=== PATIENT | male | born 1980 | race Caucasian/White ===

== ENCOUNTER 2020-06-19 15:45 | Emergency (ER) | payer MEDICAID, SELFPAY ==
[2020-06-19 15:47] VITALS: BP 113/71; PULSE 66; RESP 14; TEMP 36.6; O2SAT 98; BMI 21.6
--- NOTE | 2020-06-19 16:12 | EKG12_ITS ---
Test Reason : COUGH Blood Pressure : / mmHG Vent. Rate : 057 BPM Atrial Rate : 057 BPM P-R Int : 190 ms QRS Dur : 118 ms QT Int : 426 ms P-R-T Axes : 060 070 076 degrees QTc Int : 414 ms Sinus bradycardia Incomplete right bundle branch block Borderline ECG Confirmed by CHRIS CRAFT, MOHIT ([id number]), editor at large ABHI LACEY ([id number]) on 06/25/2020 1:06:54 PM Referred By: Confirmed By:MOHIT PEREZ MD
--- NOTE | 2020-06-19 16:13 | VDLE_ITS ---
Reason For Study: edema, cough RIGHT LEFT GSV is normal. GSV is normal. CFV is compressible. CFV is compressible. FV is compressible. FV is compressible. POP V is compressible. POP V is compressible. T/P Trunk is compressible. T/P Trunk is compressible. PTV is compressible. PTV is compressible. RT PerV is compressible. LT PerV is compressible. Procedure This is a venous duplex using B-mode, color flow and spectral Doppler. Exam performed portable in ED. The exam was abbreviated due to the COVID 19 protocol. The exam was diagnostic. A preliminary report was called and/or faxed to Dr. Hong. Interpretation Summary Deep veins of the lower extremities are bilaterally patent and compressible segmentally. There is no evidence of deep vein thrombosis on either side. The great saphenous veins appear bilaterally patent and compressible segmentally. Ordering Physician: Becky Hong Performed By: Amado Moreno RVT
--- NOTE | 2020-06-19 16:28 | ED.DCSUM_ITS ---
- ER Visit Summary Date of Service: 06/19/20 Chief Complaint: Cough, fatigue History of Present Illness: The patient is a 40 M presenting with cough, fatigue. He states his symptoms started on Wednesday. He has had subjective fever and chills. He has had rhinorrhea and sore throat. He has had shortness of breath and nonproductive cough. He denies chest pain. He has had diarrhea. Denies blood in his stool. Denies abdominal pain, nausea, vomiting. He complains of myalgias. He has a mild headache. He is concerned about possibility of COVID. He has not lost his sense of taste or smell. No known COVID exposure. His daughter has a fever as well. Complains of bilateral lower extremity cramping. Denies PE/DVT risk factors. Physical Examination: Vitals are stable. Patient is afebrile. Alert no acute distress. Pulse ox 98% on room air. HEENT exam is unremarkable. Pharynx is normal Neck is supple. No meningismus Lungs are clear and equal bilaterally. Heart is regular rate and rhythm. Abdomen is soft nontender nondistended. Extremities are unremarkable. Skin is warm and dry. No rash No focal neurologic deficit. Remainder of exam is unremarkable. Emergency Department Course and Treatment: EKG is sinus rhythm rate of 57 with no acute ischemic changes. Chest x-ray shows Normal x-ray examination of the chest. CBC, chemistries unremarkable. D-dimer negative. Troponin is negative. His daughter had a positive rapid strep test. Rapid strep was obtained and is negative. COVID test was ordered and is pending. Ambulatory pulse ox is 99% on room air. Patient is advised to social distance and quarantine until his results come back. Advised to return to the ED for worsening complaints. Disposition: Discharge home Impression: Viral illness, suspect COVID This note was generated with [employer] dictation software. It may contain incorrect words, spelling, and punctuation that were not noted in review of the chart prior to signing ED Disposition - Plan for ED Patient: Referrals: Estevan Grimes [Primary Care Provider] -
--- NOTE | 2020-06-19 17:00 | RAD_ITS ---
STUDY: X-RAY CHEST REASON FOR EXAM: Male, 40 years old. cough, shortness of breath TECHNIQUE: AP portable view of the chest. COMPARISON: None. FINDINGS: The lungs are clear and expanded. There is no demonstrated pleural abnormality. Normal size heart. Normal mediastinum and anil. Normal visualized pulmonary arteries. Normal visualized aortic arch and descending thoracic aorta. Normal visualized thoracic spine. Normal visualized ribs, clavicles, and shoulders. There is no demonstrated abnormality of the visualized soft tissue structures of the upper abdomen. RAD/Chest 1 View (Portable) IMPRESSION: Normal x-ray examination of the chest. Electronically Signed: Jason García MD at 17:16 EDT , Service support ,
[2020-06-19 17:07] LABS: Absolute Lymphocyte Count 2.92 X10^3/uL (0.83-4.51); Absolute Neutrophil Count 3.1 X10^3/uL (2.0-7.7); Basophil# 0.05 X10^3/uL; Basophil% 0.7 % (0-1); Eosinophil# 0.08 X10^3/uL; Eosinophils% 1.2 % (0-5); Hematocrit 40.9 % (40-54); Hemoglobin 13.6 g/dL (13.0-16.5); Lymphocyte # 2.92 X10^3/ul (4.0); Lymphocyte % 42.9 % (19-41); Mean Corp Hgb Conc 33.3 g/dL (32-36); Mean Corpuscular Hgb 30.8 pg (27.0-32.0); Mean Corpuscular Volume 92.5 fL (80-94); Mean Platelet Vol. 10.9 fl (6.2-12.0); Monocyte# 0.61 X10^3/uL; NRBC Flagged by Analyzer 0 % (0-5); Neutrophil # 3.14 X10^3/uL (2.7-7.7); Neutrophil % 46.1 % (47-70); Platelet Count 254 K/mm3 (150-450); RBC Distribution Width CV 12.1 % (11.6-14.6); RBC Distribution Width SD 41.1 fl (35.1-43.9); Red Blood Count 4.42 M/mm3 (4.6-6.2); White Blood Count 6.8 K/mm3 (4.4-11.0)
[2020-06-19 17:10] VITALS: O2SAT 98
[2020-06-19 17:11] VITALS: BP 118/78; PULSE 60; RESP 17; TEMP 36.6; O2SAT 98
[2020-06-19 17:21] LABS: D-Dimer Quantitative (DVT/PE) < 0.27 FEU/ug/m (0.27-0.49)
[2020-06-19 17:25] LABS: Anion Gap 3 (5-15); BUN 13 mg/dL (7-18); BUN/Creat Ratio 12.5 RATIO (10-20); Chloride 109 mmol/L (98-107); Creatinine, Serum 1.04 mg/dL (0.70-1.30); EST Glomerular Filtration Rate 85 mL/min (>60); Est Glom Filt Rate - Afr Amer 102 mL/min (>60); Estimated Creatinine Clearance 100.22 ml/min; Glucose 96 mg/dL (74-106); Potassium 4.1 mmol/L (3.5-5.1); Sodium Level 141 mmol/L (136-145)
[2020-06-19 17:48] VITALS: O2SAT 98
--- NOTE | 2020-06-19 18:30 | ED.DEP ---
ED Disposition - Plan for ED Patient: Instructions: ED Upper Resp Infec No Abx Tx Referrals: Estevan Grimes [Primary Care Provider] -
[2020-06-19 18:44] VITALS: BP 129/71; PULSE 68; RESP 15; O2SAT 98
== END 2020-06-19 18:45 | disposition home or self-care (01) ==
PROVIDERS: Emergency Provider Emergency Medicine; PCP Family Medicine
DX: Z03.818 Encounter for observation for suspected exposure to other biological agents ruled out (principal); B34.9 Viral infection, unspecified; R05 Cough; R53.83 Other fatigue; R68.83 Chills (without fever); J02.9 Acute pharyngitis, unspecified; J34.89 Other specified disorders of nose and nasal sinuses; R06.00 Dyspnea, unspecified; R51.9 Headache, unspecified; R19.7 Diarrhea, unspecified
CPT/HCPCS: 71045; 80048; 84484; 85025; 85379; 87635; 87880; 93005; 93970; 99282; U0003